=== PATIENT | female | born 1965 | race Caucasian/White ===

== ENCOUNTER 2017-03-06 16:40 | Emergency (ER) | payer MEDICARE | END 2017-03-06 20:46 | disposition home or self-care (01) | LOC: ER 16:40 | DX: J44.9 Chronic obstructive pulmonary disease, unspecified (principal); F32.9 Major depressive disorder, single episode, unspecified; F41.9 Anxiety disorder, unspecified; K21.9 Gastro-esophageal reflux disease without esophagitis; I10 Essential (primary) hypertension; E78.5 Hyperlipidemia, unspecified; I25.2 Old myocardial infarction; E03.9 Hypothyroidism, unspecified; F17.210 Nicotine dependence, cigarettes, uncomplicated; Z95.1 Presence of aortocoronary bypass graft; Z79.82 Long term (current) use of aspirin; Z79.899 Other long term (current) drug therapy; Z88.5 Allergy status to narcotic agent | CPT/HCPCS: 36415; 96361; 96374; J1885; Q9967 ==